=== PATIENT | female | born 1995 | race Caucasian/White ===

== ENCOUNTER 2017-03-25 19:04 | Emergency (ER) | payer OTHER ==
[2017-03-25] MEDS: ONDANSETRON 4 MG ORAL DISINTEGRATING TAB (S0181) PO (20:40)
[2017-03-25 21:23] LABS: INFLUENZA A AMPLIFICATION NEGATIVE (NEGATIVE); INFLUENZA B AMPLIFICATION NEGATIVE (NEGATIVE)
[2017-03-25] MEDS: ACETAMINOPHEN TAB 650MG DOSE (2X325MG) PO (22:12)
== END 2017-03-25 22:14 | disposition home or self-care (01) ==
LOC: M ED 19:04
DX: A08.4 Viral intestinal infection, unspecified (principal)
CPT/HCPCS: 87502

== ENCOUNTER 2017-11-07 18:44 | Emergency (ER) | payer OTHER ==
[2017-11-07] MEDS: AMOXICILLIN 500 MG CAP PO (19:52)
[2017-11-07] MEDS: NORCO, ANEXSIA 5/325MG TABLET (HYDROcodone/ACETAMINOPHEN) PO (19:52)
== END 2017-11-07 19:58 | disposition home or self-care (01) ==
LOC: M ED 18:44
DX: K01.1 Impacted teeth (principal)
CPT/HCPCS: 99283

== ENCOUNTER 2017-12-18 15:22 | Emergency (ER) | payer OTHER | END 2017-12-18 17:25 | disposition home or self-care (01) | LOC: M ED 15:22 | DX: K01.1 Impacted teeth (principal); Z88.5 Allergy status to narcotic agent | CPT/HCPCS: 99283 ==

== ENCOUNTER 2018-06-25 16:21 | Emergency (ER) | payer OTHER ==
[~2018-06-25] VITALS: Ht 175.3 cm; Wt 102.2 kg
[~2018-06-25 16:21] MED LIST: AMOX500C PO; AUGM875T28 PO; HYDR-3715 PO; LIDO1SOL8 PO; ORTH1TAB9 PO; ZOFR4TAB14 PO
[2018-06-25] MEDS ORDERED: NS 1,000 ML IV ONE (18:30)
[2018-06-25 18:53] LABS: BASO % 0.2 % (0.0-1.0); EOS # 0.1 10^3/uL (0.0-0.50); EOS % 0.8 % (0.0-3.0); HEMATOCRIT 47.4 % (36.0-47.0); HEMOGLOBIN 16.6 g/dl (12.0-15.5); LYMPH # 0.9 10^3/uL (1.5-6.5); LYMPH % 7.7 % (24.0-44.0); MEAN CORPUSCULAR HEMOGLOBIN 30.1 pg (27.0-33.0); MONO # 0.5 10^3/uL (0.0-0.8); NEUTROPHILS # 10.5 10^3/uL (1.8-7.7); PLATELET COUNT, AUTOMATED 316 10^3/uL (150-450); RED BLOOD COUNT 5.51 10^6/uL (4.00-5.40); WHITE BLOOD COUNT 12.1 10^3/uL (4.0-10.0)
[2018-06-25 19:20] LABS: ALBUMIN 4.1 GM/DL (3.2-5.2); ALT/SGPT 19 U/L (12-78); BILIRUBIN,DIRECT 0.2 MG/DL (0.0-0.2); BILIRUBIN,TOTAL 0.8 MG/DL (0.2-1.0); BLOOD UREA NITROGEN 9 MG/DL (7-18); C REACTIVE PROTEIN QUANTITATIV 0.92 MG/DL (0.00-0.30); CARBON DIOXIDE LEVEL 26 MEQ/L (21-32); CHLORIDE LEVEL 104 MEQ/L (98-107); CREATININE FOR GFR 0.92 MG/DL (0.55-1.30); GLUCOSE, FASTING 89 MG/DL (70-100); POTASSIUM SERUM 4.2 MEQ/L (3.5-5.1); SODIUM LEVEL 138 MEQ/L (136-145); TOTAL PROTEIN 8.2 GM/DL (6.4-8.2)
[2018-06-25 19:22] LABS: INFLUENZA A AMPLIFICATION NEGATIVE (NEGATIVE); INFLUENZA B AMPLIFICATION NEGATIVE (NEGATIVE)
[2018-06-25 19:24] LABS: ERYTHROCYTE SEDIMENTATION RATE 8 mm/hr (0-20)
[2018-06-25] MEDS ORDERED: IBUPROFEN 800 MG TAB PO ONE (20:30)
[2018-06-25] MEDS ORDERED: CLINDAMYCIN 900 MG in APPROPRIATE DILUENT 1 EA IV ONE (20:45)
--- NOTE | 2018-06-25 22:18 | ECGEPIP ---
Stationary ECG Study [facility] - ED Test Date: 2018-06-25 Pat Name: MINISTERIO VINES Department: Room: - Gender: F Manager Emergency: NISA : 1995 Requested By: CURLY AUGUSTIN [employer] Order Number: [id number] Reading MD: Brian Castellon Measurements Intervals [place] Rate: 119 P: 54 AK: 134 QRS: 116 QRSD: 100 T: 14 QT: 307 QTc: 433 Interpretive Statements SINUS TACHYCARDIA INCOMPLETE RIGHT BUNDLE BRANCH BLOCK POSSIBLE RIGHT VENTRICULAR HYPERTROPHY NO PRIORS FOR COMPARISON Electronically Signed On 06-25-2018 22:17:45 EDT by Brian Castellon
--- NOTE | 2018-06-25 22:35 | REPVR ---
EXAM: US Left Breast Limited EXAM DATE/TIME: 06/25/2018 8:14 PM CLINICAL HISTORY: 22 years old, female; Breast pain; Left; Additional info: Left lower outer quadrant breast pain eval abcess TECHNIQUE: Imaging protocol: Limited ultrasound of Left breast with image documentation, including axilla when performed. COMPARISON: No relevant prior studies available. FINDINGS: At the lower outer aspect of the left breast just below the skin surface at the 4:30 position there is a small oval hypoechoic area measuring approximately 8mm by 5 mm x 2 mm in thickness. This may represent a small infected collection since there is drainage from this area. Followup study should be performed to see if this completely resolves to exclude any possibility of underlying lesion. IMPRESSION: Probable small infected fluid collection lower outer aspect of the left breast. Recommend followup studies to see if this resolves. ASSESSMENT: BI-RADS 3 requiring followup exams. Electronically signed by: Angel Kincaid On 06/25/2018 22:34:58 PM
[2018-06-25] MEDS ORDERED: CLIN150C14 PO (23:10)
[2018-06-25] MEDS ORDERED: IBUP80TA PO (23:10)
[2018-06-25 23:16] VITALS: BP 120/62
== END 2018-06-25 23:16 | disposition home or self-care (01) ==
LOC: M ED 16:21
DX: N61.0 Mastitis without abscess (principal); R50.9 Fever, unspecified; R11.0 Nausea; Z97.5 Presence of (intrauterine) contraceptive device; Z88.5 Allergy status to narcotic agent; Z88.6 Allergy status to analgesic agent

== ENCOUNTER 2018-09-01 20:59 | Emergency (ER) | payer OTHER ==
[~2018-09-01] VITALS: Ht 175.3 cm; Wt 100.0 kg
[~2018-09-01 20:59] MED LIST changes: +CLIN150C14 PO; +IBUP80TA PO
[2018-09-01] MEDS ORDERED: DEPO150I (21:07)
[2018-09-01] MEDS ORDERED: KETOROLAC 30 MG/ML VIAL (J1885) IV ONE (21:30)
[2018-09-01 21:55] LABS: BASO # 0.1 10^3/uL (0.0-0.2); BASO % 0.4 % (0.0-1.0); EOS # 0.2 10^3/uL (0.0-0.50); EOS % 1.6 % (0.0-3.0); HEMATOCRIT 42.4 % (36.0-47.0); HEMOGLOBIN 15.1 g/dl (12.0-15.5); LYMPH # 3.8 10^3/uL (1.5-6.5); LYMPH % 29.9 % (24.0-44.0); MEAN CORPUSCULAR HEMOGLOBIN 30.9 pg (27.0-33.0); MEAN CORPUSCULAR HGB CONC 35.6 g/dl (32.0-36.5); MEAN CORPUSCULAR VOLUME 86.9 fl (80.0-96.0); MONO # 0.8 10^3/uL (0.0-0.8); NEUTROPHILS # 7.8 10^3/uL (1.8-7.7); NEUTROPHILS % 61.9 % (36.0-66.0); PLATELET COUNT, AUTOMATED 344 10^3/uL (150-450); RED BLOOD COUNT 4.88 10^6/uL (4.00-5.40); WHITE BLOOD COUNT 12.6 10^3/uL (4.0-10.0)
[2018-09-01 22:13] LABS: ALBUMIN 3.8 GM/DL (3.2-5.2); BILIRUBIN,DIRECT 0.1 MG/DL (0.0-0.2); BILIRUBIN,TOTAL 0.5 MG/DL (0.2-1.0); TOTAL PROTEIN 7.4 GM/DL (6.4-8.2)
--- NOTE | 2018-09-01 23:23 | REPVR ---
EXAM: US Pelvis Complete, Transabdominal EXAM DATE/TIME: 09/01/2018 10:34 PM CLINICAL HISTORY: 23 years old, female; Pelvic pain; Additional info: Pelvic pain/heavy bleeding TECHNIQUE: Imaging protocol: Real-time transabdominal pelvic ultrasound with image documentation. Complete exam. COMPARISON: No relevant prior studies available. FINDINGS: Uterus/cervix: The uterus measures 7.2 cm in its cephalocaudad dimension and 3.2 x 5.2 cm in its AP and lateral dimensions transabdominal. The uterus measures 7.1 cm in its cephalocaudad dimension and 3.6 cm in its AP dimension transvaginal. There is an IUD in the uterus. The endometrium measures 15 mm. Right adnexa: The right ovary measures 2.4 x 4.1 x 2.2 cm and demonstrates multiple small follicles and normal blood flow. Left adnexa: The left ovary measures 2.9 x 3.2 x 2.6 cm and demonstrates small follicles and normal blood flow. Free fluid: No significant free fluid. IMPRESSION: 1. IUD in the uterus. 2. Otherwise negative pelvic sonogram. Electronically signed by: Kenyon Catalan On 09/01/2018 23:23:11 PM
[2018-09-01] MEDS ORDERED: CIPR-249 PO (23:42)
[2018-09-01] MEDS ORDERED: KETO10TAB PO (23:42)
[2018-09-01] MEDS ORDERED: NORCO, ANEXSIA 5/325MG TABLET (HYDROcodone/ACETAMINOPHEN) PO ONE (23:45)
[2018-09-02 00:19] VITALS: BP 139/75
== END 2018-09-02 00:21 | disposition home or self-care (01) ==
LOC: M ED 20:59
DX: N39.0 Urinary tract infection, site not specified (principal); N92.6 Irregular menstruation, unspecified; Z97.5 Presence of (intrauterine) contraceptive device; Z79.3 Long term (current) use of hormonal contraceptives; Z88.6 Allergy status to analgesic agent; Z88.5 Allergy status to narcotic agent
CPT/HCPCS: 76830; 76856; 80047; 80076; 81001; 84702; 85025; 87086; 93976; 96374; 99284; J1885